=== PATIENT | male | born 1975 | race African-American/Black ===

== ENCOUNTER 2017-11-25 08:14 | Emergency (ER) | payer SELFPAY ==
--- NOTE | 2017-11-25 09:55 | RAD ---
CHEST PA AND LATERAL: History: 42-year-old male with history of cough and congestion for two days. FINDINGS: Heart size is within normal limits. The lungs are clear. No pneumonia, edema, or pleural effusion. IMPRESSION: No acute intrathoracic disease. Stable from prior study, 03-13-15. No evidence for pneumonia. POS: [facility]
== END 2017-11-25 09:08 | disposition home or self-care (01) ==
LOC: ERS 08:14
DX: J06.9 Acute upper respiratory infection, unspecified (principal); F17.220 Nicotine dependence, chewing tobacco, uncomplicated
CPT/HCPCS: 71046

== ENCOUNTER 2018-04-07 13:17 | Emergency (ER) | payer OTHER, SELFPAY ==
[2018-04-07] MEDS ORDERED: Silver Sulfadiazine 1% Cream 50 GM JAR ONE (15:09)
== END 2018-04-07 15:18 | disposition home or self-care (01) ==
LOC: ERS 13:17
DX: T21.22XA Burn of second degree of abdominal wall, initial encounter (principal); F17.220 Nicotine dependence, chewing tobacco, uncomplicated; Z71.6 Tobacco abuse counseling; X11.8XXA Contact with other hot tap-water, initial encounter
CPT/HCPCS: 16020; 99406

== ENCOUNTER 2019-01-12 15:35 | Emergency (ER) | payer OTHER ==
[2019-01-12] MEDS ORDERED: Ondansetron ODT 4 MG TAB ONE (15:59)
== END 2019-01-12 16:18 | disposition home or self-care (01) ==
LOC: ERS 15:35
DX: R11.2 Nausea with vomiting, unspecified (principal)
CPT/HCPCS: 99281; Q0162

== ENCOUNTER 2019-04-28 19:49 | Emergency (ER) | payer SELFPAY ==
[2019-04-28 20:17] LABS: Bilirubin Negative (Negative); Blood, Urine Negative (Negative); Clarity Clear (Clear); Glucose, Urine (Dipstick) Normal (Negative); Leukocyte Negative Leu/uL (Negative); Nitrite Negative (Negative); Protein, Urine (Dipstick) Negative (Neg-Trace); Urobilinogen Normal mg/dL (Less than 2)
[2019-04-28] MEDS ORDERED: Ketorolac Tromethamine 60 MG/2 ML VIAL ONE (20:27)
--- NOTE | 2019-04-28 21:17 | ULT ---
US Testicular W Doppler HISTORY: Testicular pain COMPARISON: None. FINDINGS: Real-time imaging of the right and left testes were performed. This shows normal sized test icles. The right testicle measures 3.7 cm, the left testicle 3.5 cm in length. The right epididymal head is prominent but the patient does not describe any pain in this region. Bilateral hydroceles are present. Doppler evaluation with spectral analysis: Normal flow shown to the testes and epididymal regions. IMPRESSION: Small bilateral hydroceles. No signs of torsion.
== END 2019-04-28 22:00 | disposition home or self-care (01) ==
LOC: ERS 19:49
DX: N50.812 Left testicular pain (principal); F17.220 Nicotine dependence, chewing tobacco, uncomplicated
CPT/HCPCS: 76870; 81003; 93976; 96372; J1885

== ENCOUNTER 2019-06-07 08:26 | Emergency (ER) | payer SELFPAY ==
--- NOTE | 2019-06-07 09:01 | RAD ---
2 VIEWS LEFT HIP: Date: 06/07/19 PROVIDED CLINICAL HISTORY: Left hip pain without injury. FINDINGS: No evidence for fracture or other acute osseous abnormality. If there is persistent clinical concern, conservative management and follow-up imaging are advised. IMPRESSION: As above. POS: [facility]
== END 2019-06-07 09:58 | disposition short-term general hospital (02) ==
LOC: ERS 08:26
DX: M25.552 Pain in left hip (principal); F17.220 Nicotine dependence, chewing tobacco, uncomplicated

== ENCOUNTER 2021-01-01 19:02 | Emergency (ER) | payer SELFPAY | END 2021-01-01 20:17 | disposition left against medical advice (07) | LOC: ERS 19:02 | DX: Z53.21 Procedure and treatment not carried out due to patient leaving prior to being seen by health care provider (principal) ==

== ENCOUNTER 2021-01-26 07:50 | Emergency (ER) | payer SELFPAY ==
[2021-01-26] MEDS ORDERED: Ketorolac Tromethamine 30 MG/ML VIAL ONE (08:19)
== END 2021-01-26 08:50 | disposition home or self-care (01) ==
LOC: ERS 07:50
DX: M25.572 Pain in left ankle and joints of left foot (principal)
CPT/HCPCS: 96372; 99283; J1885

== ENCOUNTER 2022-01-23 01:25 | Emergency (ER) | payer SELFPAY ==
[2022-01-23] MEDS ORDERED: Proparacaine 0.5% Opth 15 ML BOT ONE (02:05)
[2022-01-23] MEDS ORDERED: Fluorescein Opthalmic Strip ONE (02:05)
== END 2022-01-23 02:36 | disposition home or self-care (01) ==
LOC: ERS 01:25
DX: H16.8 Other keratitis (principal)
CPT/HCPCS: 99283

== ENCOUNTER 2023-05-05 23:52 | Emergency (ER) | payer SELFPAY ==
[2023-05-06] MEDS ORDERED: HYDROcodone/Acetaminophen 5/325 mg Tablet ONE (00:23)
[2023-05-06] MEDS ORDERED: Ketorolac Tromethamine 30 MG/ML VIAL ONE (00:24)
== END 2023-05-06 01:13 | disposition home or self-care (01) ==
LOC: ERS 23:52
DX: M79.671 Pain in right foot (principal); M79.672 Pain in left foot; I10 Essential (primary) hypertension; Y04.0XXA Assault by unarmed brawl or fight, initial encounter
CPT/HCPCS: 96372; J1885

== ENCOUNTER 2024-06-15 20:26 | Emergency (ER) | payer SELFPAY ==
[2024-06-16] MEDS ORDERED: Ketorolac Tromethamine 30 MG (1 mL) VIAL ONE (01:32)
== END 2024-06-16 01:55 | disposition home or self-care (01) ==
LOC: ERS 20:26
DX: S60.222A Contusion of left hand, initial encounter (principal); M25.532 Pain in left wrist; M25.511 Pain in right shoulder; X58.XXXA Exposure to other specified factors, initial encounter
CPT/HCPCS: 96372; 99283; J1885